=== PATIENT | male | born 1980 | race Two or more races ===

== ENCOUNTER 2017-08-09 21:43 | Emergency (ER) | payer OTHER ==
[~2017-08-09] VITALS: Ht 188 cm; Wt 99.8 kg
== END 2017-08-09 22:17 | disposition home or self-care (01) ==
LOC: FSED 21:43
DX: M54.2 Cervicalgia (principal); S16.1XXA Strain of muscle, fascia and tendon at neck level, initial encounter; R10.12 Left upper quadrant pain; F17.210 Nicotine dependence, cigarettes, uncomplicated
CPT/HCPCS: 99283